=== PATIENT | male | born 1985 | race Hispanic/Latino ===

== ENCOUNTER 2018-04-01 13:56 | Emergency (ER) | payer BC ==
[~2018-04-01] VITALS: Ht 165.1 cm; Wt 73.6 kg
[2018-04-01 15:21] LABS: HEMATOCRIT 42.7 % (39.0-50.0); HEMOGLOBIN 14.3 g/dl (14.0-18.0); IMMATURE GRANULOCYTES 0.3 % (0.0-5.0); MEAN CELL VOLUME 92.2 fL CALC (80.0-100.0); MEAN CORPUSCULAR HGB 30.9 pG CALC (26.0-32.0); MEAN CORPUSCULAR HGB CONC 33.5 g/L CALC (32.0-36.0); NEUT# 5.65 thou/uL (1.82-7.42); RED BLOOD COUNT 4.63 mill/uL (4.70-6.10)
[2018-04-01 16:31] VITALS: BP 133/84
== END 2018-04-01 17:42 | disposition home or self-care (01) | DRG 730 ==
LOC: ED 13:56
PROVIDERS: Family Medicine
PROC: 3E0K3GC Introduction of Other Therapeutic Substance into Genitourinary Tract, Percutaneous Approach (ICD-10-PCS; principal; 2018-04-01)
DX: N48.30 Priapism, unspecified (principal)